=== PATIENT | female | born 1960 | race Caucasian/White ===

== ENCOUNTER → 2016-08-12 | Outpatient (CLI) | payer BC ==
--- NOTE | 2016-08-12 14:07 | KCIC ---
PROCEDURE MR of the right knee HISTORY Right knee pain. Instability. Injury June 10. Pain is anteromedial. TECHNIQUE Standard routine multiplanar sequences are obtained. COMPARISON None FINDINGS Tear of the medial meniscus. No evidence of a lateral meniscal tear. Anterior and posterior cruciate ligaments are intact. Medial collateral ligament is intact. Iliotibial band unremarkable. Fibular collateral ligament, biceps femoris tendon and popliteus tendon are intact. The extensor mechanism is intact. There is a small joint effusion. No evidence of osteochondral loose body. Medial compartment chondromalacia is severe at the weight-bearing medial femoral condyle. Moderate chondromalacia at the posterior lateral tibial plateau. Severe chondromalacia of the patella. No evidence of bone lesion or acute fracture. No acute soft tissue injury. No significant Paul cyst. IMPRESSION 1. Medial meniscal tear. 2. Primary osteoarthritis. Electronically signed by: Anthony Goss MD (Aug 12, 2016 14:06:33)
== END | disposition home or self-care (01) ==
LOC: KCIC MRI 12:57
PROVIDERS: ATTEND Orthopaedic Surgery
DX: M17.11 Unilateral primary osteoarthritis, right knee (principal); S83.241A Other tear of medial meniscus, current injury, right knee, initial encounter; W19.XXXA Unspecified fall, initial encounter; Y93.89 Activity, other specified; Y92.89 Other specified places as the place of occurrence of the external cause; Y99.8 Other external cause status
CPT/HCPCS: 73721